=== PATIENT | female | born 1995 | race Two or more races ===

== ENCOUNTER 2022-01-24 17:16 | Emergency (ER) | payer SELFPAY ==
[2022-01-24 17:28] VITALS: BP 124/70; PULSE 76; O2SAT 100
[2022-01-24 18:06] VITALS: BP 110/76; PULSE 88; RESP 17; TEMP 36.6; O2SAT 76; BMI 23.8
--- NOTE | 2022-01-24 18:37 | ED.GENADULT ---
HPI - General Adult General Chief complaint: General Medical Stated complaint: ?pcp Time Seen by Provider: 01/24/22 17:28 Source: patient and EMS Mode of arrival: EMS Limitations: no limitations History of Present Illness HPI narrative: Patient comes to the emergency room for a possible overdose. Seems that patient was found unresponsive by her family. EMS was called. Patient is very somnolent, on arrival to the emergency room, patient's oxygen saturation 76% sound asleep, pinpoint pupils. Patient was given intranasal Narcan. Patient woke up immediately. According to the patient, she did not use opiates, only crack cocaine. After Narcan was given, patient became agitated but redirectable. Patient denies SI or HI Related Data Allergies Allergy/AdvReac Type Severity Reaction Status Date / Time No Known Allergies Allergy Verified 01/24/22 18:39 Review of Systems Review of Systems: Constitutional : No Weight loss, No Fever, No Chills, No Night Sweats, No Fatigue, No Malaise ENT/Mouth : No Hearing loss, No Ear Pain, No Nasal Congestion, No Sinus Pain, No Hoarseness, No sore throat, No Rhinorrhea, No Swallowing Difficulty Eyes: No Eye Pain, No Swelling, No Redness, No Foreign Body, No Discharge, No Vision Changes Cardiovascular : No Chest Pain, No SOB, No Dyspnea on Exertion, No Orthopnea, No Edema, No Palpitations Respiratory : No Cough, No Sputum, No Wheezing, No Smoke Exposure, No Dyspnea Gastrointestinal : No Nausea, No Vomiting, No Diarrhea, No Constipation, No abdominal Pain, No Hematochezia, No Melena Genitourinary : no irregular bleeding, No Dysuria, No Urinary Frequency, No Hematuria, No Urinary Incontinence, No Urgency, No Flank Pain, No Urinary Flow Changes, No Hesitancy Musculoskeletal : No joint pain, No Myalgias, No Joint Swelling Skin : No Skin Lesions, No rash Neuro : No Weakness, No Numbness, No Paresthesias, No Loss of Consciousness, No Dizziness, No Headache Psych : No Anxiety/Panic, No Depression, No SI/HI/AH/VH, No Social Issues, Heme/Lymph: No Bruising, No Bleeding,No Lymphadenopathy Endocrine : No Polyuria, No Polydipsia, No Temperature Intolerance PMF Past Medical History Medical History (Updated 01/24/22 @ 18:41 by Samantha Villareal MD) Substance abuse Social History Social History Advance Directives: No Advance Directives Information Provided: No Physical Exam ED Vital Signs: Vital Signs - 24 hr 01/24/22 18:06 Temperature 98 F Pulse Rate 88 Respiratory Rate 17 Blood Pressure 110/76 Pulse Oximetry 76 L BMI result Body Mass Index 23.8 Const Other: Appearance: Alert. Oriented X3. No acute distress. Eyes: Pupils equal, round and reactive to light. ENT: Pharynx normal. Neck: Normal inspection. Neck supple. No lymph nodes noted. No crepitus CVS: Normal heart rate and rhythm. Pulses normal. Normal S1 and S2 Respiratory: No respiratory distress. Breath sounds normal. No Wheezing. No rales Abdomen: Soft and nontender. No rigidity. No distention. Skin: Skin warm and dry. Normal skin color. Normal skin turgor. Extremities: No lower extremity edema. No Lacerations. No Rash Neuro: Oriented X 3. No motor deficit. No sensory deficit. Moving all extremities. No slurred speech. CN 2 through 12 grossly intact Psych: calm, cooperative, normal affect Course Course Course Narrative: Patient was given 1 dose of intranasal Narcan. Patient woke up immediately. Patient awake alert. Initially combative, did not want to stay in the emergency room but agrees to stay for at least 1/2 hour for observation. At this time, 18 30, patient is sleeping. Care/Sude consult pending. Patient will be provided with home Narcan. 19:00. Patient is back asleep. Patient is on oxygen monitor, oxygen saturation is 100% on room air. Physician observation started at 19:00 Discharge Plan Discharge Clinical Impression: Overdose Patient Disposition: Home, Self-Care Instructions: Adult Overdose (ED) Additional Instructions: Please follow-up with your primary care physician tomorrow. If you have any worsening or new symptoms, please return to the emergency room or call 911
[2022-01-24 19:10] VITALS: PULSE 74; RESP 16; O2SAT 96
[2022-01-24 20:15] VITALS: PULSE 77; RESP 15; O2SAT 95
--- NOTE | 2022-01-24 20:36 | MHC.RECOVSUP ---
? Reason for consult:OPI o? Current location:[facility]? o? Identified substance use concern:? -? Overdose -? Seeking ATS (detox) -? Support ? Intervention: ? Plan: o? Follow up tomorrow? ? Additional information:ROBE didn't meet with Estrellita miller from Care team is handling her case.
[2022-01-24 22:00] VITALS: BP 121/77; PULSE 72; RESP 16; TEMP 36.6; O2SAT 98
[2022-01-25 00:06] VITALS: BP 129/69; PULSE 71; RESP 18; O2SAT 96
[2022-01-25 02:00] VITALS: PULSE 77; RESP 16; O2SAT 100
[2022-01-25 04:00] VITALS: PULSE 71; RESP 14; O2SAT 100
--- NOTE | 2022-01-25 05:44 | PC.NURSE ---
Patient slept comfortably through the night without incident. Ate breakfast and will be discharged at 6am
== END 2022-01-25 06:01 | disposition home or self-care (01) ==
PROVIDERS: Emergency Provider Emergency Medicine
DX: T40.5X1A Poisoning by cocaine, accidental (unintentional), initial encounter (principal); R40.4 Transient alteration of awareness; Y92.9 Unspecified place or not applicable; F19.10 Other psychoactive substance abuse, uncomplicated; R45.1 Restlessness and agitation
CPT/HCPCS: 99284

== ENCOUNTER 2022-06-20 11:41 | Emergency (ER) | payer OTHER, SELFPAY ==
[2022-06-20] VITALS (8 sets, daily range): BP systolic 110–137; BP diastolic 60–78; PULSE 74–86; RESP 12–18; TEMP 36.2–36.6; O2SAT 97–100; BMI 23.4
--- NOTE | ~2022-06-20 | XR_ITS ---
EXAMINATION: LEFT ANKLE, LEFT FOOT CLINICAL INFORMATION: Twisted ankle yesterday COMPARISON: None TECHNIQUE: 2 views left ankle, 2 5 FINDINGS: No significant bone, joint or soft tissue abnormality is seen. Ankle monitoring device is present which could not be removed. XR/XR ankle LT min 3V IMPRESSION: No evidence of an acute osseous injury.
--- NOTE | ~2022-06-20 | XR_ITS ---
EXAMINATION: LEFT ANKLE, LEFT FOOT CLINICAL INFORMATION: Twisted ankle yesterday COMPARISON: None TECHNIQUE: 2 views left ankle, 2 5 FINDINGS: No significant bone, joint or soft tissue abnormality is seen. Ankle monitoring device is present which could not be removed. XR/XR foot LT 2V IMPRESSION: No evidence of an acute osseous injury.
--- NOTE | 2022-06-20 17:26 | ED.LOWEXIN ---
HPI - Extremity Injury (Lower) General Chief Complaint: Extremity Injury, Lower Stated Complaint: LLE PAIN,SLEEPY,DENIES DRUG/ETOH USE PER EMS Time Seen by Provider: 06/20/22 12:13 History of Present Illness HPI Narrative: Patient is a 27-year-old female undermining of rolling her ankle yesterday. Complaining of pain to the left ankle with ambulation. Patient has a very lethargic look. Has an ankle bracelet. Reports of possible drug overdose. Related Data Allergies Allergy/AdvReac Type Severity Reaction Status Date / Time No Known Allergies Allergy Verified 01/24/22 18:39 Review of Systems Review of Systems: Patient refused to answer any specific review system complaining of pain to the ankle on the left PMFSH Past Medical History Attestation statement: The following information was validated with the patient. Medical History Substance abuse Social History Social History Advance Directives: No Advance Directives Information Provided: Yes Physical Exam Vital Signs: Vital Signs: Last Vital Signs Temp 97.9 F 06/20/22 16:08 Pulse 80 06/20/22 16:08 Resp 16 06/20/22 16:08 BP 120/72 06/20/22 16:08 Pulse Ox 99 06/20/22 17:05 O2 Del Method 06/20/22 17:05 BMI result Body Mass Index 23.4 Appearance: Arousable No acute distress. Eyes: Pupils equal, round and reactive to light. ENT: Pharynx normal. Neck: Normal inspection. Neck supple. No lymph nodes noted. No crepitus CVS: Normal heart rate and rhythm. Pulses normal. Normal S1 and S2 Respiratory: No respiratory distress. Breath sounds normal. No Wheezing. No rales Abdomen: Soft and nontender. No rigidity. No distention. good BS x4 Skin: Skin warm and dry. Normal skin color. Normal skin turgor. Extremities: Examination of the left ankle showed no gross deformities. No tenderness on palpation of medial or lateral malleolus. Range of motion grossly intact. Distal pulses 2+ at dorsalis pedis patient is moving her toes Neuro: Arousable No motor deficit. No sensory deficit. Moving all extermities. No slurred speech Medical Decision Making Medical Decision Making MDM Narrative: Patient clinically appeared to be overdose on either cocaine or narcotics. She is breathing she is responsive to painful stimuli she is nodding. Her vital signs are stable. Will monitor patient closely. X-ray of the ankle and foot with done there both negative. Patient also noted by nursing to be able to ambulate without any difficulties. Will discharge patient Differential Diagnosis Differential Diagnoses: The differential diagnosis associated with the presentation includes Polysubstance abuse, sprain ankle Lab Data MDM Lab Attestation statement: I reviewed the patient's lab results. Radiology Impression Discussion of test interpretation with radiology: I have reviewed the radiologist's reading. Radiologist Impression: Negative ankle and foot x-ray Discharge Plan Discharge Clinical Impression: Ankle sprain and strain Patient Disposition: Home, Self-Care Instructions: Ankle Sprain (ED), Polysubstance Abuse (ED) Referrals: Physician,Unknown J [Primary Care Provider] - 2 days
--- NOTE | 2022-06-20 19:49 | MHC.EDTECH ---
pt 2000 vitals sign taken ,pt was given dinner ,ate 100 % drank 360 ml fluids .
--- NOTE | 2022-06-20 20:17 | PC.NURSE ---
This selling underwriter assumed care of this Pt at 1900. Pt awake, calm and cooperative sitting at the edge of stretcher, eating dinner tray provided by technology coordinator. Pt asking when she will be going home, provider aware.
--- NOTE | 2022-06-20 22:00 | MHC.EDTECH ---
2200 rounding done ,vitals sign taken pt sleeping .
[2022-06-21 06:11] VITALS: RESP 16
== END 2022-06-21 06:54 | disposition home or self-care (01) ==
PROVIDERS: Emergency Provider Emergency Medicine Emergency Medical Services
DX: R60.0 Localized edema (principal); M25.572 Pain in left ankle and joints of left foot; F14.10 Cocaine abuse, uncomplicated
CPT/HCPCS: 73610; 73620; 99283; 99284